=== PATIENT | female | born 1995 | race African-American/Black ===

== ENCOUNTER 2017-02-10 17:35 | Emergency (ER) | payer OTHER ==
[~2017-02-10] VITALS: Ht 170.2 cm; Wt 59.0 kg
[2017-02-10 17:37] VITALS: BP 138/84; PULSE 111; RESP 17; TEMP 98.1; O2SAT 99
--- NOTE | 2017-02-10 17:51 | PD ---
Physical Exam Date Seen by Provider: Feb 10, 2017 Time Seen by Provider: 17:49 Narrative 21 year old female presents to the emergency department for evaluation of possible . She states she had positive tests, but US did not show anything so she was referred to the ED. She reports LMP in November. Patient awaiting bed placement. Data Data Last Documented VS Vital Signs Date Time Temp Pulse Resp B/P Pulse Ox O2 Delivery O2 Flow Rate FiO2 02/10/17 17:37 98.1 111 17 138/84 99 MDM Supervised Visit with MERA: Siri Molina Feb 10, 2017 17:51
--- NOTE | 2017-02-10 18:18 | PD ---
HPI Chief Complaint: Related Problem Time Seen by Provider: 18:18 Travel History International Travel<30 days: No Contact w/Intl Traveler<30days: No Traveled to known affect area: No History of Present Illness HPI 21-year-old male presents to the emergency department for evaluation of . She was seen on Monday or at [facility] and an ultrasound was unable to confirm an intrauterine and she was told to come in for evaluation. Her last menstrual period was late November. She has had 2 positive urine tests, one was confirmed by [facility]. She reports abdominal cramping on and off since January. Denies abdominal cramping at this time. Denies vaginal bleeding. Denies dysuria, urgency, frequency, or hematuria. Denies change in stool. Reports nausea and vomiting with brushing her teeth. Otherwise denies vomiting. Denies fever, chills. No known allergies. Denies significant past medical history. Primary care provider is in [place]. No other modifying factors or associated signs and symptoms. [facility] Past Medical History ?: LMP: 11/2016 Social History Tobacco Use: No Allergies-Medications (Allergen,Severity, Reaction): Coded Allergies: No Known Allergies (Unverified , 02/10/17) Review of Systems Except as stated in HPI: all other systems reviewed are Neg Physical Exam Narrative GENERAL: Well-nourished, well-developed female patient, in no acute distress SKIN: Warm and dry. HEAD: Atraumatic. Normocephalic. EYES: Pupils equal and round. No scleral icterus. No injection or drainage. ENT: Mucosa pink and moist. Airway patent. NECK: Trachea midline. CARDIOVASCULAR: Regular rate and rhythm. No murmur appreciated. RESPIRATORY: No accessory muscle use. Breath sounds clear and equal bilaterally. No retractions or tachypnea. GASTROINTESTINAL: Abdomen soft, non-tender, nondistended. Bowel sounds active 4 quadrants. MUSCULOSKELETAL: No obvious deformities. No clubbing. No cyanosis. No edema. NEUROLOGICAL: Awake and alert. Oriented 3. No obvious cranial nerve deficits. Motor grossly within normal limits. Normal speech. PSYCHIATRIC: Appropriate mood and affect; insight and judgment normal. Data Data Last Documented VS Vital Signs Date Time Temp Pulse Resp B/P Pulse Ox O2 Delivery O2 Flow Rate FiO2 02/10/17 23:50 87 18 121/69 97 Room Air 4/7/17 17:37 98.1 Orders Beta Hcg (Quant/Titer) (02/10/17 18:18) Ed Urine Pregnancytest Poc (02/10/17 18:18) Complete Blood Count With Diff (02/10/17 18:18) Basic Metabolic Panel (Bmp) (02/10/17 18:18) Type And Screen (02/10/17 18:18) Us Pelvis (Ques Pr/Ect)W Trans (02/10/17 ) Potassium Chloride (Kcl) (02/10/17 21:15) Labs Laboratory Tests Test 02/10/17 02/10/17 18:30 18:35 Blood Type O POSITIVE Antibody Screen NEGATIVE Blood Bank Comment White Blood Count 10.5 TH/MM3 Red Blood Count 4.38 MIL/MM3 Hemoglobin 13.2 GM/DL Hematocrit 39.3 % Mean Corpuscular Volume 89.7 FL Mean Corpuscular Hemoglobin 30.2 PG Mean Corpuscular Hemoglobin 33.7 % Concent Red Cell Distribution Width 12.0 % Platelet Count 305 TH/MM3 Mean Platelet Volume 6.8 FL Neutrophils (%) (Auto) 75.5 % Lymphocytes (%) (Auto) 18.2 % Monocytes (%) (Auto) 4.4 % Eosinophils (%) (Auto) 1.5 % Basophils (%) (Auto) 0.4 % Neutrophils # (Auto) 8.0 TH/MM3 Lymphocytes # (Auto) 1.9 TH/MM3 Monocytes # (Auto) 0.5 TH/MM3 Eosinophils # (Auto) 0.2 TH/MM3 Basophils # (Auto) 0.0 TH/MM3 CBC Comment DIFF FINAL Differential Comment Sodium Level 138 MEQ/L Potassium Level 3.3 MEQ/L Chloride Level 104 MEQ/L Carbon Dioxide Level 26.7 MEQ/L Anion Gap 7 MEQ/L Blood Urea Nitrogen 6 MG/DL Creatinine 0.84 MG/DL Estimat Glomerular Filtration 104 ML/MIN Rate Random Glucose 74 MG/DL Calcium Level 9.2 MG/DL Human Chorionic Gonadotropin, 34998 MIU/ML Quant MDM Medical Decision Making Medical Screen Exam Complete: Yes Emergency Medical Condition: Yes Medical Record Reviewed: Yes Differential Diagnosis Ectopic , molar , intrauterine Narrative Course 21-year-old female here for evaluation of a that was not confirmed by ultrasound as an IUP by [facility]. Patient placed on school lunch monitor and monitored. IV site obtained. CBC, BMP, and beta hCG, urine ordered. Pelvic ultrasound ordered. 1929: Urine positive. 1999: CBC unremarkable. Potassium 3.3. Beta hCG 38266. 2024: Type O+. Antibody screen negative. 2099: Pelvic ultrasound pending. Patient reported off to Dr. Sanchez at this time. See his note for final disposition. Tari Ramos [facility] Feb 10, 2017 18:18
[2017-02-10 18:57] LABS: BASOPHIL % 0.4 % (0.0-2.0); EOSINOPHIL # 0.2 TH/MM3 (0-0.4); EOSINOPHIL % 1.5 % (0.0-4.0); HEMATOCRIT 39.3 % (35.0-46.0); HEMO FLAGS DIFF FINAL; LYMPH % 18.2 % (9.0-44.0); LYMPHOCYTE # 1.9 TH/MM3 (1.0-4.8); MEAN CELL VOLUME 89.7 FL (80.0-100.0); MEAN CORPUSCULAR HEMOGLOBIN 30.2 PG (27.0-34.0); MEAN CORPUSCULAR HGB CONC 33.7 % (32.0-36.0); MONO % 4.4 % (0.0-8.0); NEUT % 75.5 % (16.0-70.0); PLATELET COUNT 305 TH/MM3 (150-450); RED BLOOD COUNT 4.38 MIL/MM3 (4.00-5.30); WHITE BLOOD COUNT 10.5 TH/MM3 (4.0-11.0)
[2017-02-10 19:18] VITALS: BP 120/73; PULSE 81; RESP 18; O2SAT 99
[2017-02-10 19:25] LABS: BICARBONATE 26.7 MEQ/L (21.0-32.0); POTASSIUM 3.3 MEQ/L (3.5-5.1)
[2017-02-10] MEDS ORDERED: POTASSIUM CHLORIDE 20 MEQ CONTROLLED RELEASE TAB PO ONE (21:15)
--- NOTE | 2017-02-10 22:24 | RADRPT ---
EXAM DATE/TIME: 02/10/2017 19:33 [facility] COMPARISON: No previous studies available for comparison. INDICATIONS : Pelvic pain. LAB(S): Beta-hC MEDICAL HISTORY : . Scoliosis. SURGICAL HISTORY : None. ENCOUNTER: Initial ACUITY: 1 day PAIN SCORE: 0/10 LOCATION: Bilateral pelvis MEASUREMENTS: TRANSVAGINAL: UTERUS: 14.7 x 6.9 x 5.5 cm ENDOMETRIAL STRIPE: 11 mm RIGHT OVARY: 3.2 x 2.4 x 2.4 cm LEFT OVARY: 2.0 x 2.0 x 1.1 cm FREE FLUID: Yes Adjacent to the Right ovary. CROWN RUMP LENGTH: 0.5 cm = 6 WKS 2 DAYS FHR: Non visualized. BPM FINDINGS: UTERUS: There is a complex fluid collection seen in the superior left lateral aspect of the uter us measuring 4.2 x 2.7 x 2.5 cm. This has a smaller cystic component that appears to have more simpl e fluid measuring 1.8 cm. On the margin of this smaller internal cystic component there is a 0.5 cm echogenic focus which could potentially represent an embryonic pole. cardiac activity however is not seen in this region. A yolk sac is not seen. There does appear to be thickened echogenic end ometrium around this. Very little myometrium is seen around the posterior left lateral aspect of this complex fluid collection and thickened endometrium. There does appear to be some minimal slit-like cystic change seen in the endometrium surrounding this larger fluid collection. RIGHT OVARY: Ovary contains no mass or significant cystic lesion. LEFT OVARY: Ovary contains no mass or significant cystic lesion. MISCELLANEOUS: There is a small amount of free fluid seen in the right adnexa. CONCLUSION: Complex mass in the superior left lateral aspect of the uterus likely related to a ge stational sac. A live IUP is not confirmed. A missed AB is most likely the cause for this appearanc e. It should be noted that there is very little myometrium seen around this region suggesting this c ould be a cornual gestational sac. Follow-up is recommended. Vinny Caro MD on February 10, 2017 at 21:50 Board Certified Radiologist. This report was verified electronically.
--- NOTE | 2017-02-10 23:11 | PD ---
Data Data Last Documented VS Vital Signs Date Time Temp Pulse Resp B/P Pulse Ox O2 Delivery O2 Flow Rate FiO2 02/10/17 19:18 81 18 120/73 99 Room Air 02/10/17 17:37 98.1 Orders Beta Hcg (Quant/Titer) (02/10/17 18:18) Ed Urine Pregnancytest Poc (02/10/17 18:18) Complete Blood Count With Diff (02/10/17 18:18) Basic Metabolic Panel (Bmp) (02/10/17 18:18) Type And Screen (02/10/17 18:18) Us Pelvis (Ques Pr/Ect)W Trans (02/10/17 ) Potassium Chloride (Kcl) (02/10/17 21:15) Labs Laboratory Tests Test 02/10/17 02/10/17 18:30 18:35 Blood Type O POSITIVE Antibody Screen NEGATIVE Blood Bank Comment White Blood Count 10.5 TH/MM3 Red Blood Count 4.38 MIL/MM3 Hemoglobin 13.2 GM/DL Hematocrit 39.3 % Mean Corpuscular Volume 89.7 FL Mean Corpuscular Hemoglobin 30.2 PG Mean Corpuscular Hemoglobin 33.7 % Concent Red Cell Distribution Width 12.0 % Platelet Count 305 TH/MM3 Mean Platelet Volume 6.8 FL Neutrophils (%) (Auto) 75.5 % Lymphocytes (%) (Auto) 18.2 % Monocytes (%) (Auto) 4.4 % Eosinophils (%) (Auto) 1.5 % Basophils (%) (Auto) 0.4 % Neutrophils # (Auto) 8.0 TH/MM3 Lymphocytes # (Auto) 1.9 TH/MM3 Monocytes # (Auto) 0.5 TH/MM3 Eosinophils # (Auto) 0.2 TH/MM3 Basophils # (Auto) 0.0 TH/MM3 CBC Comment DIFF FINAL Differential Comment Sodium Level 138 MEQ/L Potassium Level 3.3 MEQ/L Chloride Level 104 MEQ/L Carbon Dioxide Level 26.7 MEQ/L Anion Gap 7 MEQ/L Blood Urea Nitrogen 6 MG/DL Creatinine 0.84 MG/DL Estimat Glomerular Filtration 104 ML/MIN Rate Random Glucose 74 MG/DL Calcium Level 9.2 MG/DL Human Chorionic Gonadotropin, 79598 MIU/ML Quant MDM Supervised Visit with MERA: Yes Narrative Course I, Dr. Sanchez, have reviewed the advance practice practitioner's documentation and am in agreement, met with the patient face to face, made the diagnosis, and the medical decision making was done by me. See her note for further details. Briefly this is a 21-year-old female who was seen at a free clinic 2 days ago to have an ultrasound performed for her first . Her LMP was at the end of November. She was told that they could not identify and that she needed to follow-up. She is asymptomatic. She denies vaginal bleeding or discharge. No abdominal pain. CBC is unremarkable. BMP is remarkable for potassium 3.3, otherwise unremarkable. Beta hCG is 77,245. Pelvic ultrasound: CONCLUSION: Complex mass in the superior left lateral aspect of the uterus likely related to a gestational sac. A live IUP is not confirmed. A missed AB is most likely the cause for this appearance. It should be noted that there is very little myometrium seen around this region suggesting this could be a cornual gestational sac. Follow-up is recommended. Case discussed with on-call OB hospitalist Dr. Marshall who reviewed the ultrasound images. This does not appear to be a molar . It also does not appear to be a cornual . This is most likely a missed AB. He believes the patient can be safely discharged home with outpatient follow-up in the next 2-3 days. Patient was made aware of all findings and was provided a copy of the ultrasound report. She was told to follow-up with an OTHER SPORTS OFFICIAL doctor in the next 2-3 days. If she cannot follow-up as an outpatient, then she should return here for repeat beta hCG and ultrasound. She was informed on when to return to the emergency Department sooner. She verbalizes understanding and agreement with plan. Diagnosis Primary Impression: Nonviable Referrals: Nohemi Cobos MD 3 days [employer] 3 days Additional Instruction: Follow-up with an OTHER SPORTS OFFICIAL doctor in the next 2-3 days. Return to the emergency department for worsening symptoms or any other concerns as discussed. Disposition: 01 DISCHARGE HOME Condition: Stable Reza Sanchez MD Feb 10, 2017 23:11
[2017-02-10 23:50] VITALS: BP 121/69; PULSE 87; RESP 18; O2SAT 97
== END 2017-02-10 23:57 | disposition home or self-care (01) ==
LOC: NEPD 17:35
DX: O36.4XX0 Maternal care for intrauterine death, not applicable or unspecified (principal); Z3A.00 Weeks of gestation of pregnancy not specified
CPT/HCPCS: 76700; 76817; 80048; 84702; 84703; 85025; 86850; 86900; 86901

== ENCOUNTER 2017-03-07 18:36 | Emergency (ER) | payer OTHER ==
[~2017-03-07] VITALS: Ht 170.2 cm; Wt 57.0 kg
[2017-03-07 18:46] VITALS: BP 117/82; PULSE 68; RESP 15; TEMP 98.4; O2SAT 97
--- NOTE | 2017-03-07 19:06 | PD ---
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 Patient was seen here approximately one month ago and was diagnosed with nonviable . Patient states her last menstrual period was the end of November. She states she followed up with the [facility] clinic. She was diagnosed with blighted ovum and was given a prescription for methotrexate. She states that she had a lot going on including finals and did not want to take the medication. She states that she started bleeding on , 5 days ago. She states that she was seen in the clinic today was given a prescription for Percocet for pain. She was to still take the methotrexate. She stated that they told her if the pain or vaginal bleeding increase, she should come to the emergency department. She states that the past hour, her bleeding has increased soaking 1 pad. Patient took 1 Percocet for pain. Patient still has not taken the methotrexate. Patient states she is a G1, P0. I reviewed the previous chart, her blood type is O+. PFSH Past Medical History Musculoskeletal: Yes (SCOLIOSIS) Immunizations Current: No ?: LMP: 11/2016 : 1 Para: 0 Miscarriage: 0 : 0 Past Surgical History Surgical History: No Previous Surgery Social History Alcohol Use: Yes (OCCASIONAL) Tobacco Use: No Substance Use: Yes (MARIJUANA OCCASIONAL) Allergies-Medications (Allergen,Severity, Reaction): Coded Allergies: No Known Allergies (Unverified , 03/07/17) Reported Meds & Prescriptions Reported Meds & Active Scripts Active No Active Prescriptions or Reported Medications Review of Systems Except as stated in HPI: all other systems reviewed are Neg Physical Exam Narrative GENERAL: Well-nourished, well-developed female patient, afebrile. SKIN: Focused skin assessment warm/dry. HEAD: Normocephalic. Atraumatic EYES: No scleral icterus. No injection or drainage. NECK: Supple, trachea midline. No JVD or lymphadenopathy. CARDIOVASCULAR: Regular rate and rhythm without murmurs, gallops, or rubs. RESPIRATORY: Breath sounds equal bilaterally. No accessory muscle use. Lungs sounds are clear to auscultation GASTROINTESTINAL: Abdomen soft and nondistended. Pelvic tenderness to palpation. MUSCULOSKELETAL: No cyanosis, or edema. BACK: Nontender without obvious deformity. No CVA tenderness. Data Data Last Documented VS Vital Signs Date Time Temp Pulse Resp B/P Pulse Ox O2 Delivery O2 Flow Rate FiO2 03/07/17 18:46 98.4 68 15 117/82 97 Orders Complete Blood Count With Diff (03/07/17 18:45) Comprehensive Metabolic Panel (03/07/17 18:45) Beta Hcg (Quant/Titer) (03/07/17 18:45) ^ Insert Iv (03/07/17 18:45) Type And Screen (03/07/17 18:45) Sodium Chlor 0.9% 1000 Ml Inj (Ns 1000 M (03/07/17 19:15) Us Pelvis (Ques Pr/Ect)W Trans (03/07/17 ) Labs Laboratory Tests Test 03/07/17 18:55 White Blood Count 16.1 TH/MM3 Red Blood Count 4.13 MIL/MM3 Hemoglobin 12.4 GM/DL Hematocrit 36.6 % Mean Corpuscular Volume 88.5 FL Mean Corpuscular Hemoglobin 30.0 PG Mean Corpuscular Hemoglobin 33.9 % Concent Red Cell Distribution Width 12.5 % Platelet Count 305 TH/MM3 Mean Platelet Volume 7.1 FL Neutrophils (%) (Auto) 88.2 % Lymphocytes (%) (Auto) 7.0 % Monocytes (%) (Auto) 4.2 % Eosinophils (%) (Auto) 0.3 % Basophils (%) (Auto) 0.3 % Neutrophils # (Auto) 14.2 TH/MM3 Lymphocytes # (Auto) 1.1 TH/MM3 Monocytes # (Auto) 0.7 TH/MM3 Eosinophils # (Auto) 0.0 TH/MM3 Basophils # (Auto) 0.0 TH/MM3 CBC Comment DIFF FINAL Differential Comment Sodium Level 140 MEQ/L Potassium Level 3.4 MEQ/L Chloride Level 105 MEQ/L Carbon Dioxide Level 23.8 MEQ/L Anion Gap 11 MEQ/L Blood Urea Nitrogen 5 MG/DL Creatinine 0.88 MG/DL Estimat Glomerular Filtration 98 ML/MIN Rate Random Glucose 82 MG/DL Calcium Level 9.2 MG/DL Total Bilirubin 0.6 MG/DL Aspartate Amino Transf 19 U/L (AST/SGOT) Alanine Aminotransferase 13 U/L (ALT/SGPT) Alkaline Phosphatase 71 U/L Total Protein 8.3 GM/DL Albumin 4.2 GM/DL Human Chorionic Gonadotropin, 1580 MIU/ML Quant Blood Type O POSITIVE Antibody Screen NEGATIVE MDM Medical Decision Making Medical Screen Exam Complete: Yes Emergency Medical Condition: Yes Medical Record Reviewed: Yes Differential Diagnosis Spontaneous versus anemia versus ectopic Narrative Course 21-year-old female presents to the emergency department for evaluation of increased vaginal bleeding. CBC, CMP, beta hCG, type and screen, ultrasound of the pelvis are ordered and pending. Patient is given normal saline 1 L IV bolus. CBC shows leukocytosis 16.1. CMP shows no acute abnormality. Beta HCG is 1580. US is pending. Dr. Dubon will resume care and disposition of patient. Scripts No Active Prescriptions or Reported Meds Siri Magallon March 07, 2017 19:05
[2017-03-07] MEDS ORDERED: SODIUM CHLOR 0.9% 1000 ML INJ 1,000 ML IV ONE (19:15)
[2017-03-07 19:19] LABS: AUTOMATED NEUTROPHIL # 14.2 TH/MM3 (1.8-7.7); BASOPHIL % 0.3 % (0.0-2.0); EOSINOPHIL % 0.3 % (0.0-4.0); HEMATOCRIT 36.6 % (35.0-46.0); HEMO FLAGS DIFF FINAL; LYMPHOCYTE # 1.1 TH/MM3 (1.0-4.8); MEAN CELL VOLUME 88.5 FL (80.0-100.0); MEAN CORPUSCULAR HGB CONC 33.9 % (32.0-36.0); MONO % 4.2 % (0.0-8.0); NEUT % 88.2 % (16.0-70.0); PLATELET COUNT 305 TH/MM3 (150-450); RED BLOOD COUNT 4.13 MIL/MM3 (4.00-5.30); RED CELL DISTRIBUTION WIDTH 12.5 % (11.6-17.2); WHITE BLOOD COUNT 16.1 TH/MM3 (4.0-11.0)
[2017-03-07 19:33] LABS: ANION GAP 11 MEQ/L (5-15); AST (GOT) 19 U/L (15-37); BICARBONATE 23.8 MEQ/L (21.0-32.0); BLOOD UREA NITROGEN 5 MG/DL (7-18); CHLORIDE 105 MEQ/L (98-107); GLOMERULAR FILTRATION RATE 98 ML/MIN (>89); POTASSIUM 3.4 MEQ/L (3.5-5.1); SODIUM (NA) 140 MEQ/L (136-145)
[2017-03-07 19:51] LABS: ALKALINE PHOSPHATASE 71 U/L (45-117); ALT (GPT) 13 U/L (10-53); BETA HCG QUANT 1580 MIU/ML (0-5); TOTAL BILIRUBIN ADULT 0.6 MG/DL (0.2-1.0)
--- NOTE | 2017-03-07 23:10 | PD ---
Data Data Last Documented VS Vital Signs Date Time Temp Pulse Resp B/P Pulse Ox O2 Delivery O2 Flow Rate FiO2 03/07/17 18:46 98.4 68 15 117/82 97 Orders Complete Blood Count With Diff (03/07/17 18:45) Comprehensive Metabolic Panel (03/07/17 18:45) Beta Hcg (Quant/Titer) (03/07/17 18:45) ^ Insert Iv (03/07/17 18:45) Type And Screen (03/07/17 18:45) Sodium Chlor 0.9% 1000 Ml Inj (Ns 1000 M (03/07/17 19:15) Us Pelvis (Ques Pr/Ect)W Trans (03/07/17 ) Labs Laboratory Tests Test 03/07/17 18:55 White Blood Count 16.1 TH/MM3 Red Blood Count 4.13 MIL/MM3 Hemoglobin 12.4 GM/DL Hematocrit 36.6 % Mean Corpuscular Volume 88.5 FL Mean Corpuscular Hemoglobin 30.0 PG Mean Corpuscular Hemoglobin 33.9 % Concent Red Cell Distribution Width 12.5 % Platelet Count 305 TH/MM3 Mean Platelet Volume 7.1 FL Neutrophils (%) (Auto) 88.2 % Lymphocytes (%) (Auto) 7.0 % Monocytes (%) (Auto) 4.2 % Eosinophils (%) (Auto) 0.3 % Basophils (%) (Auto) 0.3 % Neutrophils # (Auto) 14.2 TH/MM3 Lymphocytes # (Auto) 1.1 TH/MM3 Monocytes # (Auto) 0.7 TH/MM3 Eosinophils # (Auto) 0.0 TH/MM3 Basophils # (Auto) 0.0 TH/MM3 CBC Comment DIFF FINAL Differential Comment Sodium Level 140 MEQ/L Potassium Level 3.4 MEQ/L Chloride Level 105 MEQ/L Carbon Dioxide Level 23.8 MEQ/L Anion Gap 11 MEQ/L Blood Urea Nitrogen 5 MG/DL Creatinine 0.88 MG/DL Estimat Glomerular Filtration 98 ML/MIN Rate Random Glucose 82 MG/DL Calcium Level 9.2 MG/DL Total Bilirubin 0.6 MG/DL Aspartate Amino Transf 19 U/L (AST/SGOT) Alanine Aminotransferase 13 U/L (ALT/SGPT) Alkaline Phosphatase 71 U/L Total Protein 8.3 GM/DL Albumin 4.2 GM/DL Human Chorionic Gonadotropin, 1580 MIU/ML Quant Blood Type O POSITIVE Antibody Screen NEGATIVE [facility] Medical Record Reviewed: Yes Supervised Visit with MERA: No Narrative Course During the course of the patients emergency department visit, the patients history, examination, and differential diagnosis were reviewed with the patient. The patient had IV access obtained and blood work sent for analysis. The patient's case was checked out to me by Siri at the conclusion of her shift. The patient is pending ultrasound reading. The patient has a history of abnormal with reported blighted ovum and vaginal bleeding. The patient has been being monitored by the [facility]. The patient was initially provided normal saline 1 L IV fluid bolus. The patients laboratory studies were reviewed and remarkable for a white count of 16.1, hemoglobin 12.4, platelets 305 with 86.2 neutrophils, lymphocytes 7, CMP is remarkable for a potassium of 3.4, BUN 5, total protein 8.3, quantitative beta hCG is 1580 which is decreased down from 7000, blood type is O + Radiology studies were reviewed and remarkable for an ultrasound that shows that the previously seen gestational sac is no longer identified. The ovaries are normal in size and shape without evidence of focal mass. No adnexal masses are found, small amount of free fluid is present within the pelvis that appears physiologic. Recommended continued monitoring of serial beta hCGs until they return to 0. The patient was previously provided pain medication by the women's Center. She is instructed to continue this as needed. The patient was instructed to follow- up with the laborer for reexamination in the next 2 days for continued care. The patient is resting comfortably and feels better, is alert and in no distress. The patients results and examination findings were discussed with the patient. The repeat examination is unremarkable and benign. The history, exam, diagnostic testing, and current condition do not suggest any significant pathology to warrant further testing, continued ED treatment, admission, or surgical evaluation at this point. The vital signs have been stable. The patient does not have uncontrollable pain, intractable vomiting, or other significant symptoms. The patient's condition is stable and appropriate for discharge. The patient will pursue further outpatient evaluation with a primary care physician or other designated or consulting physician as indicated in the discharge instructions. The patient expressed understanding and was agreeable with this plan. Diagnosis Primary Impression: Miscarriage Referrals: [employer] 2 days Follow-up with her laborer in 2 days to have a repeat quantitative beta hCG done Patient Instructions: General Instructions Additional Instruction: Continue previously prescribed medications as recommended by the laborer Med/Other Pt SpecificInfo: No Change to Meds Scripts No Active Prescriptions or Reported Meds Disposition: 01 DISCHARGE HOME Condition: Ev Sharma MD March 07, 2017 23:10
--- NOTE | 2017-03-07 23:28 | RADRPT ---
EXAM DATE/TIME: 03/07/2017 21:10 [facility] COMPARISON: US PELVIS (QUEST PREG/ECTOPIC) W/TRANSVAG, February 10, 2017, 19:33. INDICATIONS : Bleeding and pain with . LAB(S): Beta-hC MEDICAL HISTORY : . Scoliosis. SURGICAL HISTORY : None. ENCOUNTER: Subsequent ACUITY: 1 day PAIN SCORE: 4/10 LOCATION: Bilateral pelvis MEASUREMENTS: UTERUS: 9.2 x 6.0 x 4.8 cm ENDOMETRIAL STRIPE: 6 mm RIGHT OVARY: 3.4 x 3.0 x 2.2 cm LEFT OVARY: 2.6 x 2.6 x 1.0 cm FINDINGS: The previously seen gestational sac is no longer identified. The ovaries are normal in size and shape without evidence of focal mass. No adnexal masses are identified. A small amount of fluid is present within the pelvis within the physiologic range. CONCLUSION: 1. No evidence of intrauterine . The previously seen gestational sac is no longer identified . Considering the positive beta hCG ectopic is not entirely excluded though serial beta hCGs to ensure return to zero should be considered. Ham Garza MD on March 07, 2017 at 23:22 Board Certified Radiologist. This report was verified electronically.
== END 2017-03-08 00:48 | disposition home or self-care (01) ==
LOC: NEPC 18:36
DX: O03.9 Complete or unspecified spontaneous abortion without complication (principal)
CPT/HCPCS: 76700; 76817; 80053; 84702; 85025; 86850; 86900; 86901; 96360; 99284; J7030